=== PATIENT | male | born 1985 | race Caucasian/White ===

== ENCOUNTER 2023-07-10 18:28 | Emergency (ER) | payer OTHER, SELFPAY ==
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
[2023-07-10 18:32] VITALS: BP 135/88; PULSE 83; RESP 16; TEMP 36.9; O2SAT 100
[2023-07-10] MEDS: KETOROLAC (*BKC) 60 MG/2 ML VIAL IM (18:47)
== END 2023-07-10 19:34 | disposition home or self-care (01) ==
LOC: ANHED 18:53
PROVIDERS: Emergency Provider Physician Assistant
DX: S46.911A Strain of unspecified muscle, fascia and tendon at shoulder and upper arm level, right arm, initial encounter (principal); F17.210 Nicotine dependence, cigarettes, uncomplicated; V49.40XA Driver injured in collision with unspecified motor vehicles in traffic accident, initial encounter
CPT/HCPCS: 73030; 73080; 96372; 99284; J1885